=== PATIENT | female | born 1950 | race Caucasian/White ===

== ENCOUNTER → 2016-10-04 | Outpatient (CLI) | payer MEDICARE, BC | LOC: RAD 09:09 | PROVIDERS: ATTEND Orthopaedic Surgery Hand Surgery | DX: M54.2 Cervicalgia (principal); M48.02 Spinal stenosis, cervical region | CPT/HCPCS: 72141 ==

== ENCOUNTER → 2017-03-29 | Outpatient (CLI) | payer MEDICARE, BC | LOC: OD 16:10 | PROVIDERS: ATTEND Orthopaedic Surgery Hand Surgery | DX: Z11.2 Encounter for screening for other bacterial diseases (principal) | CPT/HCPCS: 87070 ==